=== PATIENT | male | born 1985 | race Caucasian/White ===

== ENCOUNTER 2025-01-25 08:25 | Observation (INO) ==
--- NOTE | 2025-01-25 08:49 | Emergency Department Note ---
Impression & Plan Acute calculous cholecystitis, Abdominal pain ED Provider Note CHIEF COMPLAINT: Constipation HISTORY OF PRESENTING ILLNESS: The patient is a 39-year-old male who arrives to the emergency department for evaluation of severe constipation. Patient has been dealing with severe constipation since September. He has seen GI, who placed the patient on Trulance, which initially was successful, however his insurance would not cover it. The patient was then placed on Linzess, with no success. He has been using MiraLAX, fiber, and changes in diet with no relief of symptoms. He states he has severe diffuse abdominal pain, with most severe area of pain at the epigastrium. He reports he is unable to eat, as he feels very full. He reports some nausea, worsening with lying flat, no vomiting. He states yesterday he had a very watery stool. He denies fever, he is well-appearing otherwise, with stable vital signs. REVIEW OF SYSTEMS: See HPI for pertinent positives and pertinent negatives. ALLERGIES: See below MEDICATIONS: See below PAST MEDICAL HISTORY: See below PHYSICAL EXAM: VITALS: Vitals are noted on the nurse's note and reviewed by myself. Vital signs stable. GENERAL: 39-year-old male, in no acute distress, nondiaphoretic, well-developed well-nourished. SKIN: The skin was without rashes, erythema, edema, or bruising. HEART: Regular rate and rhythm without murmurs gallops or rubs. LUNGS: Clear to auscultation bilaterally without wheezes, rales or rhonchi. No retractions or accessory muscle use. ABDOMEN: Hypoactive bowel sounds x 4. Soft, diffuse tenderness to palpation, without masses or organomegaly. Rice sign negative. No guarding or rebound tenderness. Left CVA TTP. MUSCULOSKELETAL: No muscle atrophy, erythema, or edema noted. Normal gait. Strength 5/5 throughout. NEURO: Patient was alert and oriented to person place and time. No focal neurological deficits. DIFFERENTIAL DIAGNOSIS: Appendicitis, infections, diverticulitis, UTI, obstruction, mesenteric ischemia, aortic pathology, inflammatory bowel disease, renal colic, PUD, pancreatitis, biliary pathology, hernia, volvulus, constipation, as well as other pathologies. ED COURSE AND MEDICAL DECISION MAKING: HISTORY FROM INDEPENDENT HISTORIAN: Mother at bedside serving as secondary historian. MEDICATIONS GIVEN: 1 L NSS bolus, 4 mg IV Zofran, 4.5 g IV Zosyn INTERPRETATION OF LABS: I interpreted the labs with full lab results as below in the lab section of this note. Pertinent lab results discussed in the MDM section below. INTERPRETATION OF IMAGING: Imaging studies were interpreted by myself and read by radiology as per the imaging section of this note. EXTERNAL RECORDS REVIEWED: GI visit from January 04 of this year reviewed CHRONIC MEDICAL/SOCIAL CONDITIONS AFFECTING CARE: Chronic constipation MDM SUMMARY: The patient is a pleasant, 39-year-old male who arrives to the emergency department for evaluation of the above-stated complaint. Saline lock was established, lab work was obtained. Lab work shows slight leukocytosis 12.82, no anemia. CMP shows hypercalcemia 10.6, elevated blood glucose 111, no elevation of AST, ALT, or alkaline phosphatase. Total bili 0.7. Urinalysis cloudy, 1+ ketones, trace blood, and 1+ bacteria. No leukocyte esterase, negative nitrites. CT imaging of the abdomen and pelvis with IV contrast was obtained to rule out intra-abdominal process, due to patient's complaint of diffuse abdominal pain, as well as CVA tenderness, which shows cholelithiasis with a stone present within the gallbladder neck versus proximal cystic duct. Also findings suspicious for early developing acute cholecystitis. No bowel obstruction or bowel wall thickening, no biliary ductal dilatation, normal appendix. Patient was provided 1 L NSS bolus, 4 mg of IV Zofran, and 4.5 g of IV Zosyn. Initial attempt to admit the patient to medicine, however general surgery agreed to admit the patient to their services. The patient will be placed on the surgical list for tomorrow morning. Please refer to Dr. Mishra's documentation for further patient workup and care.. DIAGNOSIS: Abdominal pain, acute cholecystitis The chart was completed utilizing [employer] Speech voice recognition software. Grammatical errors, random word insertions, pronoun errors, and incomplete sentences are an occasional consequence of this system due to software limitations, ambient noise, and hardware issues. Any formal questions or concerns about the content, text, or information contained within the body of this dictation should be directly addressed to the provider for clarification. TREATMENT PLAN/DISCHARGE INSTRUCTIONS: Admit to general surgery for surgical intervention Past Med/Surg History Problem List (Updated 01/25/25 @ 12:44 by LINK Freeman) Abdominal pain (Acute) Acute calculous cholecystitis (Acute) Chronic constipation Change in bowel habits Tachycardia (Chronic) Adult ADHD (Chronic) Controlled substance agreement signed (Chronic) Elevated BP without diagnosis of hypertension (Chronic) Heartburn (Chronic) Smokes less than 1/2 pack per day (Chronic) Migraines (Chronic) Medical History Adopted Migraines Acid reflux ADHD Surgical History History of dental surgery IMPLANTS [place] teeth removed History of tonsillectomy and adenoidectomy History of inguinal hernia repair H/O wrist surgery distal radius Family History Unknown Adopted Social History Smoking Status: Current every day smoker Tobacco Type: E-cigarettes / Vaping Age Started Using Tobacco: 18; Age Quit Using Tobacco: 34; packs per day: 0.05; Cigarettes Per Day: 2 cig per day; Second Hand Exposure: No; Do You Dip or Chew Tobacco: No; Hx Alcohol Use: No Hx Substance Use: No Preferred Language: Faroese Communication Ability: Effective Visual Impairment: No Limitations Hearing Ability: Normal Database Software Technician Required: No marital status: Single Current Living Situation: Family current occupational status: employed 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 Feels Safe at Home: Yes Childhood Exposure to Second-Hand Smoke: No Diet: regular Diet Comment: no specific diet caffeine: Yes during the past year weight has: remained stable Dental Care, Regularly: No Physical Activity Frequency: Does not Exercise Seatbelt Use: always Sunscreen Use: No Sexual Orientation Comment: refuse to answer Allergies Allergies Allergy/AdvReac Type Severity Reaction Status Date / Time No Known Drug Allergies Allergy Verified 01/25/25 10:42 Home Meds Home Medications Medication Instructions Recorded Confirmed famotidine 40 mg tablet 40 mg PO QPM 01/04/25 01/25/25 polyethylene glycol 3350 17 17 g PO DAILY PRN Constipation 01/04/25 01/25/25 gram/dose oral powder (Miralax) bisacodyl 5 mg tablet,delayed 5 mg PO DAILY PRN Constipation 01/25/25 01/25/25 release (Dulcolax (bisacodyl)) dextroamphetamine-amphetamine ER 30 mg PO QAM 01/25/25 01/25/25 30 mg 24hr capsule,extend release (Adderall XR) docusate sodium 100 mg capsule 100 mg PO DAILY PRN Constipation 01/25/25 01/25/25 (Colace) linaclotide 145 mcg capsule 145 mcg PO QAM 01/25/25 01/25/25 (Linzess) Results & Data (ED) Vital Signs Vital Signs - 24 hr 01/25/25 08:35 01/25/25 11:03 Temperature 36.7 C Temperature Source Oral Pulse Rate 76 Pulse Rate [Finger] 51 L Respiratory Rate 20 16 Respiratory Effort / Characteristics Non-Labored Spontaneous Non-Labored Spontaneous Respiratory Depth Normal Normal Blood Pressure 153/90 H Blood Pressure [Right Arm] 152/100 H Blood Pressure Mean 111 Blood Pressure Mean [Right Arm] 117 Pulse Oximetry 99 100 Oxygen Delivery Method Room Air Room Air Sepsis Recent Fever Within 48 Hours No Sepsis New/Unexplained Change in Mental Status N/A Sepsis Action Taken by Nursing No Action Required Home Medications Current Medication List: was personally reviewed by me Laboratory Data Attestation: I reviewed the patient's lab results. 01/25/25 09:09 01/25/25 09:09 Lab Results 01/25/25 01/25/25 Range/Units 09:09 10:43 WBC 12.82 H (4.8-10.8) K/ul RBC 5.66 (4.70-6.10) M/uL Hgb 16.6 (14.0-18.0) g/dl Hct 48.6 (42.0-52.0) % MCV 85.9 (80.0-100.0) fL MCH 29.3 (25.0-34.0) pg MCHC 34.2 (32.0-36.0) g/dL RDW Std Deviation 38.4 (36.4-46.3) fL RDW Coeff of Wu 12.3 (11.5-14.5) % Plt Count 255 (130-400) K/uL MPV 9.8 (9.4-12.4) fL Immature Gran % (Auto) 0.4 % Neut % (Auto) 83.2 % Lymph % (Auto) 10.1 % [place] % (Auto) 5.8 % Eos % (Auto) 0.1 % Baso % (Auto) 0.4 % Neut # (Auto) 10.67 H (1.40-6.50) K/uL Lymph # (Auto) 1.30 (1.20-3.40) K/uL [place] # (Auto) 0.74 H (0.11-0.59) K/uL Eos # (Auto) 0.01 (0.00-0.50) K/uL Baso # (Auto) 0.05 (0.00-0.20) K/uL Immature Gran # (Auto) 0.05 (0.01-0.20) K/uL Sodium 138 (136-145) mmol/L Potassium 3.6 (3.5-5.1) mmol/L Chloride 98 (98-107) mmol/L Carbon Dioxide 30 (21-32) mmol/L Anion Gap 10 (3-11) BUN 10 (6-23) mg/dl Creatinine 1.32 (0.6-1.4) mg/dl Est Cr Clr Drug Dosing 87.4 ml/min eGFR 70.36 BUN/Creatinine Ratio 7.6 L (10-20) Glucose 111 H (70-99(Fasting)) mg/dl Calcium 10.6 H (8.6-10.3) mg/dl Total Bilirubin 0.7 (0.2-1.0) mg/dl AST 24 (13-39) U/L ALT 28 (7-52) U/L Alkaline Phosphatase 97 (34-104) U/L Total Protein 7.7 (6.0-8.3) gm/dl Albumin 4.8 (3.4-5.0) gm/dl Globulin 2.9 (2.5-4.0) gm/dl Albumin/Globulin Ratio 1.7 (0.9-2) Lipase 28 (11-82) U/L Urine Color Yellow Urine Appearance Cloudy A (Clear) Urine pH 7.0 (4.5-7.5) Ur Specific [place] 1.020 (1.000-1.030) Urine Protein Negative (Negative) Urine Glucose (UA) Negative (Negative) Urine Ketones 1+ H (Negative) Urine Blood Trace-intact H (Negative) Urine Nitrite Negative (Negative) Urine Bilirubin Negative (Negative) Urine Urobilinogen Negative (Negative) Ur Leukocyte Esterase Negative (Negative) Urine RBC 0-2 (0-2) /hpf Urine WBC 6-10 H (0-5) /hpf Ur Epithelial Cells 0-2 (0-2) /hpf Amorphous Sediment Present A (None Prsent) Urine Bacteria 1+ H (None Seen) Urine Mucus Present A (None Prsent) Urine Comment Administered Medications Discontinued Medications Sodium Chloride (Nss) 1,000 mls @ 999 mls/hr IV .Q1H1M STA Stop: 01/25/25 09:43 Last Infusion: 01/25/25 10:09 Dose: Infused Documented By: Admin: 01/25/25 09:05 Dose: 999 mls/hr Documented By: YULISA Piperacillin Sod/Tazobactam Sod (Zosyn) 4.5 gm in 100 mls @ 200 mls/hr IV NOW ONE; Protocol Stop: 01/25/25 11:35 Last Infusion: 01/25/25 11:54 Dose: Infused Documented By: Admin: 01/25/25 11:16 Dose: 200 mls/hr Documented By: SAMUEL Ioversol (Optiray 320 100ml) 94 ml IV ONCE ONE Stop: 01/25/25 10:30 Last Admin: 01/25/25 10:30 Dose: 94 ml Documented By: VENICE Ketorolac Tromethamine (Ketorolac 30 Mg/Ml Vial) 30 mg IV NOW ONE Stop: 01/25/25 12:02 Last Admin: 01/25/25 12:33 Dose: 30 mg Documented By: SAMUEL Ondansetron HCl (Ondansetron Inj 2 Mg/Ml 2 Ml Vial) 4 mg IV NOW STA Stop: 01/25/25 08:44 Last Admin: 01/25/25 09:06 Dose: 4 mg Documented By: YULISA Ondansetron HCl (Ondansetron Inj 2 Mg/Ml 2 Ml Vial) 4 mg IV NOW STA Stop: 01/25/25 11:31 Last Admin: 01/25/25 11:32 Dose: 4 mg Documented By: SAMUEL Imaging Data Attestation: I personally reviewed and interpreted this imaging study as follows: Radiologist's Impression: Abdomen/Pelvis CT 01/25/25 08:[address] WITH IV CONTRAST CT DOSE: 1255.08 mGy.cm HISTORY: Acute generalized abdominal pain diffuse abdominal pain TECHNIQUE: Multiaxial CT images of the abdomen and pelvis were performed following the IV administration of 94 cc of Optiray, A dose lowering technique was utilized adhering to the principles of ALARA. COMPARISON STUDY: None. FINDINGS: Clear lung bases. No pneumatosis or pneumoperitoneum identified. Unremarkable spleen, pancreas and adrenal glands. The gallbladder is distended with borderline gallbladder wall thickening and contains several intermediate to large intraluminal stones. There is a 1.4 cm stone noted within the gallbladder neck versus proximal cystic duct on image 75 series 3. There is no significant biliary ductal dilation or choledocholithiasis. Periportal edema with unremarkable appearance of the liver. 4 mm nonobstructing calculus of the interpolar right kidney. No hydronephrosis. Aorta and IVC are within normal limits. No lymphadenopathy. Tiny hiatal hernia with mild distal esophageal wall thickening. No bowel obstruction, bowel wall thickening or ascites. Normal appendix. Sclerosis of the intertrochanteric right femur is likely benign. No acute fracture. IMPRESSION: 1. Cholelithiasis with a stone present within the gallbladder neck versus proximal cystic duct. Additionally, there are findings suspicious for early developing acute cholecystitis. 2. No bowel obstruction or bowel wall thickening. 3. No biliary ductal dilation. 4. Normal appendix. ACT 112: Negative or not required by law. The above report was generated using voice recognition software. It may contain grammatical, syntax or spelling errors. Electronically signed by: Robby Bullock M.D. 01/25/2025 10:55 AM Discharge Plan Visit Data Chief Complaint: Constipation Stated Complaint: SEVERE PAIN FROM CONSTIPATION ED Provider: Jose Elias Hensley ED Midlevel Provider: Shante Holt Discharge Problem: Acute calculous cholecystitis, Abdominal pain Patient Disposition: Admitted As Inpatient Condition: Fair Forms Stand Alone Forms: Jounce Prescriptions Prescriptions: No Action polyethylene glycol 3350 [Miralax] 17 gram/dose powder 17 g PO DAILY PRN (Reason: Constipation) famotidine 40 mg tablet 40 mg PO QPM docusate sodium [Colace] 100 mg Capsule 100 mg PO DAILY PRN (Reason: Constipation) bisacodyl [Dulcolax (bisacodyl)] 5 mg Tablet,Delayed Release (Dr/Ec) 5 mg PO DAILY PRN (Reason: Constipation) dextroamphetamine-amphetamine [Adderall XR] 30 mg capsule,extended release 24hr 30 mg PO QAM Linzess 145 mcg capsule 145 mcg PO QAM Referrals Referrals: Shivani Yates MD [Primary Care Provider] -
[2025-01-25] MEDS: SODIUM CHLORIDE 0.9% 1,000 ML IV STA (09:05)
[2025-01-25] MEDS: ONDANSETRON INJ 2 MG/ML 2 ML VIAL IV STA ×2 (09:06→11:32)
[2025-01-25 09:31] LABS: Hematocrit (blood only) 48.6 % (42.0-52.0); Hemoglobin 16.6 g/dl (14.0-18.0); Immature Granulocytes # (auto) 0.05 K/uL (0.01-0.20); Immature Granulocytes % (auto) 0.4 %; Mean Corpuscular Hemoglobin 29.3 pg (25.0-34.0); Mean Corpuscular Volume 85.9 fL (80.0-100.0); Platelet Count 255 K/uL (130-400); RDW Standard Deviation 38.4 fL (36.4-46.3); Red Blood Count 5.66 M/uL (4.70-6.10); White Blood Count 12.82 K/ul (4.8-10.8)
[2025-01-25 09:56] LABS: Alanine Aminotransferase 28.0 U/L (7-52); Albumin Globulin Ratio 1.7 (0.9-2); Alkaline Phosphatase 97.0 U/L (34-104); Anion Gap 10.0 (3-11); Bilirubin,Total 0.7 mg/dl (0.2-1.0); Blood Urea Nitrogen 10.0 mg/dl (6-23); Calcium 10.6 mg/dl (8.6-10.3); Carbon Dioxide 30.0 mmol/L (21-32); Chloride 98.0 mmol/L (98-107); Creatinine Clr Calc Pharmacy 87.4 ml/min; Globulin 2.9 gm/dl (2.5-4.0); Glucose 111.0 mg/dl (70-99(Fasting)); Lipase 28.0 U/L (11-82); Potassium 3.6 mmol/L (3.5-5.1); Sodium 138.0 mmol/L (136-145); Total Protein 7.7 gm/dl (6.0-8.3)
[2025-01-25] MEDS: OPTIRAY 320 100ml IV ONE (10:30)
--- NOTE | 2025-01-25 10:56 | CT Scan Report ---
ABDOMEN AND PELVIS CT WITH IV CONTRAST CT DOSE: 1255.08 mGy.cm HISTORY: Acute generalized abdominal pain diffuse abdominal pain TECHNIQUE: Multiaxial CT images of the abdomen and pelvis were performed following the IV administrat ion of 94 cc of Optiray, A dose lowering technique was utilized adhering to the principles of ALARA. COMPARISON STUDY: None. FINDINGS: Clear lung bases. No pneumatosis or pneumoperitoneum identified. Unremarkable spleen, pancr eas and adrenal glands. The gallbladder is distended with borderline gallbladder wall thickening and contains several intermediate to large intraluminal stones. There is a 1.4 cm stone noted within the gallbladder neck versus proximal cystic duct on image 75 series 3. There is no significant biliary du ctal dilation or choledocholithiasis. Periportal edema with unremarkable appearance of the liver. 4 mm nonobstructing calculus of the interpolar right kidney. No hydronephrosis. Aorta and IVC are wit hin normal limits. No lymphadenopathy. Tiny hiatal hernia with mild distal esophageal wall thickening . No bowel obstruction, bowel wall thickening or ascites. Normal appendix. Sclerosis of the intertroc hanteric right femur is likely benign. No acute fracture. IMPRESSION: 1. Cholelithiasis with a stone present within the gallbladder neck versus proximal cystic duct. Addit ionally, there are findings suspicious for early developing acute cholecystitis. 2. No bowel obstruction or bowel wall thickening. 3. No biliary ductal dilation. 4. Normal appendix. ACT 112: Negative or not required by law. The above report was generated using voice recognition software. It may contain grammatical, syntax o r spelling errors. Electronically signed by: Robby Bullock M.D. 01/25/2025 10:55 AM
[2025-01-25 10:58] LABS: Appearance Urine Cloudy (Clear); Glucose Urine UA Negative (Negative)
[2025-01-25 11:12] LABS: Epithelial Cell Urine 0-2 /hpf (0-2)
[2025-01-25] MEDS: PIPERACILLIN/TAZOBACTAM 4.5 GM/100 ML BAG IV ONE (11:16)
--- NOTE | 2025-01-25 12:14 | History & Physical Report ---
Date of Service January 25, 2025 Assessment & Plan (1) Acute calculous cholecystitis: (2) Chronic constipation: Plan 39 yo male with sudden onset of RUQ/epigastric abdominal pain with associated nausea and bilious vomiting. History of similar abdominal pain episodes 3-4 times per last 4-5 months. Thought secondary to constipation but had burger at dinner last night and pain woke him up at 2:30 am. Exam consistent with acute cholecystitis with positive Rice's sign. CT scan with stone in neck of gallbladder. Leukocytosis of 12.8k, T. bili/LFTs wnl and no evidence of biliary obstruction on imaging. Discussed imaging and lab findings with patient and family member at bedside. Plan to admit to hospital for observation and discussed laparoscopic cholecystectomy in am. Discussed procedure, risks, expected recovery and restrictions. All questions answered. Patient electing to proceed with laparoscopic cholecystectomy tomorrow am with Dr. Mishra. Will sign consent in preop. NPO, IV fluids, IV zosyn, pain management (will give dose of IV Toradol now), antiemetics as needed, repeat am labs cbc and cmp, npo after midnight. Discussed with Dr. Mishra who agrees with above. History of Present Illness Chief Complaint: Severe abdominal pain Primary Care Provider: Shivani Yates MD Nacho is a 39 yo male with history of ADHD, GERD, migraines, with recent chronic constipation starting in September of this year who presented to ED with complaint of severe upper abdominal pain with radiaiton throughout abdomen but mostly in upper right and mid abdomen with radiation to his right back. Associated nausea and vomiting since being in the ED. Vomiting bilious. No blood. Denies fever or chills. Bowels have been loose since Friday, previously hard pellet like prior to bowel regimen and trulance/linzess prescribed by GI. No unintentional weight loss or blood in stools. Some abdominal distension. Colonoscopy is scheduled for April. History of bilateral inguinal hernia repair at 2 months old, no other abdominal surgies. No blood thinning agents. He had a greasy burger at dinner last night and pain woke him up at 2:30 am. Similar attach Friday at 2:30 am and 3 prior episodes. Allergies Allergy/AdvReac Type Severity Reaction Status Date / Time No Known Drug Allergies Allergy Verified 01/25/25 10:42 Home Medications Medication Instructions Recorded Confirmed Type famotidine 40 mg tablet 40 mg PO QPM 01/04/25 01/25/25 History polyethylene glycol 3350 17 17 g PO DAILY PRN Constipation 01/04/25 01/25/25 History gram/dose oral powder (Miralax) bisacodyl 5 mg tablet,delayed 5 mg PO DAILY PRN Constipation 01/25/25 01/25/25 History release (Dulcolax (bisacodyl)) dextroamphetamine-amphetamine ER 30 mg PO QAM 01/25/25 01/25/25 History 30 mg 24hr capsule,extend release (Adderall XR) docusate sodium 100 mg capsule 100 mg PO DAILY PRN Constipation 01/25/25 01/25/25 History (Colace) linaclotide 145 mcg capsule 145 mcg PO QAM 01/25/25 01/25/25 History (Linzess) Past Med/Surg History Problem List (Updated 01/25/25 @ 12:10 by Ingrid Sheets PA-C) Acute calculous cholecystitis Chronic constipation Change in bowel habits Tachycardia (Chronic) Adult ADHD (Chronic) Controlled substance agreement signed (Chronic) Elevated BP without diagnosis of hypertension (Chronic) Heartburn (Chronic) Smokes less than 1/2 pack per day (Chronic) Migraines (Chronic) Medical History Acid reflux ADHD Adopted Migraines Surgical History H/O wrist surgery History of dental surgery History of inguinal hernia repair History of tonsillectomy and adenoidectomy [place] teeth removed Family History Unknown Adopted Social History Smoking Status: Current every day smoker Tobacco Type: E-cigarettes / Vaping Age Started Using Tobacco: 18; Age Quit Using Tobacco: 34; packs per day: 0.05; Cigarettes Per Day: 2 cig per day; Second Hand Exposure: No; Do You Dip or Chew Tobacco: No; Hx Alcohol Use: No Hx Substance Use: No Preferred Language: Japanese Communication Ability: Effective Visual Impairment: No Limitations Hearing Ability: Normal Websphere Portal Developer Required: No marital status: Single Current Living Situation: Family current occupational status: employed 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 Feels Safe at Home: Yes Childhood Exposure to Second-Hand Smoke: No Diet: regular Diet Comment: no specific diet caffeine: Yes during the past year weight has: remained stable Dental Care, Regularly: No Physical Activity Frequency: Does not Exercise Seatbelt Use: always Sunscreen Use: No Sexual Orientation Comment: refuse to answer Review of Systems Review of Systems: All systems reviewed & are unremarkable except as noted in HPI & below Physical Exam Constitutional: WD/WN, vitals as above cooperative; no acute distress, not ill appearing, + uncomfortable, not in distress, not combative, not diaphoretic and not lethargic Looks slightly uncomfortable secondary to pain, trying to get in comfortable position but not diaphoretic and in no acute distress Respiratory: normal respiratory effort, lungs clear to auscultation Cardiovascular: RRR, no murmur, no edema Gastrointestinal (Abdomen): Inspection/Auscultation: abdomen normal to inspection; abdomen not distended Percussion/Palpation: + abdomen tender (RUQ + Rice's sign) and abdomen soft; no guarding, abdomen not rigid and abdomen not firm Skin: no rashes, warm and dry no jaundice Psychiatric: Orientation: alert and oriented x 3 Results & Data Results & Data Vital Signs (Past 12 Hours) Vital Signs Temp Pulse Pulse Resp BP BP Pulse Ox 01/25/25 11:03 51 L 16 152/100 H 100 01/25/25 08:35 36.7 C 76 20 153/90 H 99 O2 Del Method 01/25/25 11:03 Room Air 01/25/25 08:35 Room Air Laboratory Results 01/25/25 01/25/25 Range/Units 10:43 09:09 WBC 12.82 H (4.8-10.8) K/ul RBC 5.66 (4.70-6.10) M/uL Hgb 16.6 (14.0-18.0) g/dl Hct 48.6 (42.0-52.0) % MCV 85.9 (80.0-100.0) fL MCH 29.3 (25.0-34.0) pg MCHC 34.2 (32.0-36.0) g/dL RDW Std Deviation 38.4 (36.4-46.3) fL RDW Coeff of Wu 12.3 (11.5-14.5) % Plt Count 255 (130-400) K/uL MPV 9.8 (9.4-12.4) fL Immature Gran % (Auto) 0.4 % Neut % (Auto) 83.2 % Lymph % (Auto) 10.1 % [place] % (Auto) 5.8 % Eos % (Auto) 0.1 % Baso % (Auto) 0.4 % Neut # (Auto) 10.67 H (1.40-6.50) K/uL Lymph # (Auto) 1.30 (1.20-3.40) K/uL [place] # (Auto) 0.74 H (0.11-0.59) K/uL Eos # (Auto) 0.01 (0.00-0.50) K/uL Baso # (Auto) 0.05 (0.00-0.20) K/uL Immature Gran # (Auto) 0.05 (0.01-0.20) K/uL Sodium 138 (136-145) mmol/L Potassium 3.6 (3.5-5.1) mmol/L Chloride 98 (98-107) mmol/L Carbon Dioxide 30 (21-32) mmol/L Anion Gap 10 (3-11) BUN 10 (6-23) mg/dl Creatinine 1.32 (0.6-1.4) mg/dl Est Cr Clr Drug Dosing 87.4 ml/min eGFR 70.36 BUN/Creatinine Ratio 7.6 L (10-20) Glucose 111 H (70-99(Fasting)) mg/dl Calcium 10.6 H (8.6-10.3) mg/dl Total Bilirubin 0.7 (0.2-1.0) mg/dl AST 24 (13-39) U/L ALT 28 (7-52) U/L Alkaline Phosphatase 97 (34-104) U/L Total Protein 7.7 (6.0-8.3) gm/dl Albumin 4.8 (3.4-5.0) gm/dl Globulin 2.9 (2.5-4.0) gm/dl Albumin/Globulin Ratio 1.7 (0.9-2) Lipase 28 (11-82) U/L Urine Color Yellow Urine Appearance Cloudy A (Clear) Urine pH 7.0 (4.5-7.5) Ur Specific [place] 1.020 (1.000-1.030) Urine Protein Negative (Negative) Urine Glucose (UA) Negative (Negative) Urine Ketones 1+ H (Negative) Urine Blood Trace-intact H (Negative) Urine Nitrite Negative (Negative) Urine Bilirubin Negative (Negative) Urine Urobilinogen Negative (Negative) Ur Leukocyte Esterase Negative (Negative) Urine RBC 0-2 (0-2) /hpf Urine WBC 6-10 H (0-5) /hpf Ur Epithelial Cells 0-2 (0-2) /hpf Amorphous Sediment Present A (None Prsent) Urine Bacteria 1+ H (None Seen) Urine Mucus Present A (None Prsent) Urine Comment Diagnostic Findings ABDOMEN AND PELVIS CT WITH IV CONTRAST CT DOSE: 1255.08 mGy.cm HISTORY: Acute generalized abdominal pain diffuse abdominal pain TECHNIQUE: Multiaxial CT images of the abdomen and pelvis were performed following the IV administration of 94 cc of Optiray, A dose lowering technique was utilized adhering to the principles of ALARA. COMPARISON STUDY: None. FINDINGS: Clear lung bases. No pneumatosis or pneumoperitoneum identified. Unremarkable spleen, pancreas and adrenal glands. The gallbladder is distended with borderline gallbladder wall thickening and contains several intermediate to large intraluminal stones. There is a 1.4 cm stone noted within the gallbladder neck versus proximal cystic duct on image 75 series 3. There is no significant biliary ductal dilation or choledocholithiasis. Periportal edema with unremarkable appearance of the liver. 4 mm nonobstructing calculus of the interpolar right kidney. No hydronephrosis. Aorta and IVC are within normal limits. No lymphadenopathy. Tiny hiatal hernia with mild distal esophageal wall thickening. No bowel obstruction, bowel wall thickening or ascites. Normal appendix. Sclerosis of the intertrochanteric right femur is likely benign. No acute fracture. IMPRESSION: 1. Cholelithiasis with a stone present within the gallbladder neck versus proximal cystic duct. Additionally, there are findings suspicious for early developing acute cholecystitis. 2. No bowel obstruction or bowel wall thickening. 3. No biliary ductal dilation. 4. Normal appendix. ACT 112: Negative or not required by law. The above report was generated using voice recognition software. It may contain grammatical, syntax or spelling errors. I personally reviewed CT scan images and concur with above findings Code Status & VTE Plan VTE Prophylaxis Plan VTE Prophylaxis will be ordered: Yes
[2025-01-25] MEDS: KETOROLAC 30 MG/ML VIAL IV ONE (12:33)
[2025-01-25] MEDS ORDERED: MoRPHine SULFATE 2 MG/ML CARP IV PRN ×2 (12:54→15:23)
--- NOTE | 2025-01-25 13:05 | History & Physical Report ---
Date of Service January 25, 2025 Assessment & Plan (1) Abdominal pain: Plan: Nacho Qureshi is a 39 yo male with PMH b/l inguinal hernia s/p surgery age 2, ADHD, constipation. he is adopted, but mentioned Fhx of copd and CHF he been having constipation but unable to get colonoscopy till apr 2025 on friday, he has episode of LLQ pain, RUQ pain. on Friday evening (01/24), he's again has LLQ pain, RUQ pain, epigatstric pain 1. acute cholecystitis 2. LLQ pain, epigastric pain 3. constipation 4. ADHD 5. hx of b/l inguinal hernia s/p repair 1. acute cholecystitis surgery team following IV fluid, monitor for lipase, LFT, total and direct BR 2. LLQ pain, constipation he will benefit from early colonoscopy discussed potential for colonic polyps, cancer. 3. constipation he's on miralax, linezess, colace 4. ADHD he's on adderall XR 30mg PO daily 5. GERd, famoitidine 40mg BID, (2) Acute calculous cholecystitis: (3) LLQ pain: History of Present Illness Chief Complaint: LLQ pain, constipation (never has colonoscopy) RUQ pain since last night (another episode of Friday) cholelithiasis Primary Care Provider: Shivani Yates MD Mr Nacho Badillo is a 39 yo male with PMh of b/i inguinal hernia s/p repair (age 2) ADHD, constipation. his was adopted and his biological mother from lung cnacer his adopted mother is a retired nurse he's been having constipation for several months, see GI, but colonoscopy wasn't until Apr on Friday he noticed an episode of LLQ pain, RUQ pain and epigastric pain on Friday evening, he's again noticing LLQ pain, RUQ, pain and epigastric pain he's denied any blood in the stool, melena, thin caliper stool, weight loss, nausea and vomiting his CT abdomen concern for cholecystitis. however, he was in significant pain and BP is 152/100 in addition, his mother, mentioned b/l shoulder pain no chest, no shortness of breath no headache Allergies Allergy/AdvReac Type Severity Reaction Status Date / Time No Known Drug Allergies Allergy Verified 01/25/25 10:42 Home Medications Medication Instructions Recorded Confirmed Type famotidine 40 mg tablet 40 mg PO QPM 01/04/25 01/25/25 History polyethylene glycol 3350 17 17 g PO DAILY PRN Constipation 01/04/25 01/25/25 History gram/dose oral powder (Miralax) bisacodyl 5 mg tablet,delayed 5 mg PO DAILY PRN Constipation 01/25/25 01/25/25 History release (Dulcolax (bisacodyl)) dextroamphetamine-amphetamine ER 30 mg PO QAM 01/25/25 01/25/25 History 30 mg 24hr capsule,extend release (Adderall XR) docusate sodium 100 mg capsule 100 mg PO DAILY PRN Constipation 01/25/25 01/25/25 History (Colace) linaclotide 145 mcg capsule 145 mcg PO QAM 01/25/25 01/25/25 History (Linzess) Past Med/Surg History Problem List (Updated 01/25/25 @ 13:01 by Romie Haines DO) LLQ pain Abdominal pain (Acute) Acute calculous cholecystitis (Acute) Chronic constipation Change in bowel habits Tachycardia (Chronic) Adult ADHD (Chronic) Controlled substance agreement signed (Chronic) Elevated BP without diagnosis of hypertension (Chronic) Heartburn (Chronic) Smokes less than 1/2 pack per day (Chronic) Migraines (Chronic) Medical History Adopted Migraines Acid reflux ADHD Surgical History History of dental surgery IMPLANTS [place] teeth removed History of tonsillectomy and adenoidectomy History of inguinal hernia repair H/O wrist surgery distal radius Family History Unknown Adopted Social History Smoking Status: Current every day smoker Tobacco Type: E-cigarettes / Vaping Age Started Using Tobacco: 18; Age Quit Using Tobacco: 34; packs per day: 0.05; Cigarettes Per Day: 2 cig per day; Second Hand Exposure: No; Do You Dip or Chew Tobacco: No; Hx Alcohol Use: No Hx Substance Use: No Preferred Language: Monegasque Communication Ability: Effective Visual Impairment: No Limitations Hearing Ability: Normal Clothing Sales Assistant Required: No marital status: Single Current Living Situation: Family current occupational status: employed 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 Feels Safe at Home: Yes Childhood Exposure to Second-Hand Smoke: No Diet: regular Diet Comment: no specific diet caffeine: Yes during the past year weight has: remained stable Dental Care, Regularly: No Physical Activity Frequency: Does not Exercise Seatbelt Use: always Sunscreen Use: No Sexual Orientation Comment: refuse to answer Review of Systems Review of Systems: Constitutional: No Weight Change, No Fever, No Chills, No Night Sweats, No Fatigue, No Malaise Cardiovascular: No Chest Pain, No SOB, No PND, No Dyspnea on Exertion, No Orthopnea, No Claudication, No Edema, No Palpitations Respiratory: No Cough, No Sputum, No Wheezing, No Smoke Exposure, No Dyspnea Gastrointestinal: + for constipation; + for LLQ pain, RUQ pain, epigastric pain; no melena; no thin caliper stool; no hematochezia; no casey color stool : no dark color urine Musculoskeletal: + for scapular pain Neuro: No Weakness, No Numbness, No Paresthesias, No Loss of Consciousness, No Syncope, No Dizziness, No Headache, No Coordination Changes, No Recent Falls Psych: No Anxiety/Panic, No Depression, No Insomnia, No Personality Changes, No Delusions, No Rumination, No SI/HI/AH/VH, No Social Issues, No Memory Changes, No Violence/Abuse Hx., No Eating Concerns Endocrine: No Polyuria, No Polydipsia, No Temperature Intolerance Physical Exam Physical Exam: VITALS: Reviewed. WEIGHT/BMI reviewed. GEN: Healthy appearing, well-developed, NAD. -Head: NC/AT; -Eyes: PERRL, EOMI. No discharge or redn ess; -Mouth and throat: MMM. Normal gums, muc eric, palate,. NECK: Supple, with no masses. CV: RRR, no m/r/g. LUNGS: CTAB, no w/r/c. ABD: Soft, NT/ND, NBS, no masses or organomegaly. no ascites; no mass noted. : N/A MSK: No deformities, Normal gait. EXT: No clubbing, cyanosis, or edema. NEURO: AAox3 Results & Data Results & Data Vital Signs (Past 12 Hours) Vital Signs Temp Pulse Pulse Resp BP BP Pulse Ox 01/25/25 12:54 54 L 01/25/25 11:03 51 L 16 152/100 H 100 01/25/25 08:35 36.7 C 76 20 153/90 H 99 O2 Del Method 01/25/25 12:54 01/25/25 11:03 Room Air 01/25/25 08:35 Room Air Laboratory Results Laboratory Results - last 72 hr 01/25/25 01/25/25 09:09 10:43 WBC 12.82 H RBC 5.66 Hgb 16.6 Hct 48.6 MCV 85.9 MCH 29.3 MCHC 34.2 RDW Std Deviation 38.4 RDW Coeff of Wu 12.3 Plt Count 255 MPV 9.8 Immature Gran % (Auto) 0.4 Neut % (Auto) 83.2 Lymph % (Auto) 10.1 [place] % (Auto) 5.8 Eos % (Auto) 0.1 Baso % (Auto) 0.4 Neut # (Auto) 10.67 H Lymph # (Auto) 1.30 [place] # (Auto) 0.74 H Eos # (Auto) 0.01 Baso # (Auto) 0.05 Immature Gran # (Auto) 0.05 Sodium 138 Potassium 3.6 Chloride 98 Carbon Dioxide 30 Anion Gap 10 BUN 10 Creatinine 1.32 Est Cr Clr Drug Dosing 87.4 eGFR 70.36 BUN/Creatinine Ratio 7.6 L Glucose 111 H Calcium 10.6 H Total Bilirubin 0.7 AST 24 ALT 28 Alkaline Phosphatase 97 Total Protein 7.7 Albumin 4.8 Globulin 2.9 Albumin/Globulin Ratio 1.7 Lipase 28 Urine Color Yellow Urine Appearance Cloudy A Urine pH 7.0 Ur Specific [place] 1.020 Urine Protein Negative Urine Glucose (UA) Negative Urine Ketones 1+ H Urine Blood Trace-intact H Urine Nitrite Negative Urine Bilirubin Negative Urine Urobilinogen Negative Ur Leukocyte Esterase Negative Urine RBC 0-2 Urine WBC 6-10 H Ur Epithelial Cells 0-2 Amorphous Sediment Present A Urine Bacteria 1+ H Urine Mucus Present A Urine Comment Code Status & VTE Plan VTE Prophylaxis Plan VTE Prophylaxis will be ordered: Yes PG Care Time/CCT Total # of Minutes Spent Total Time Spent with Patient: Total time spent is greater than 50% in coordination of care (as documented) at patient's floor/unit and/or counseling patient: Coding Level of Care Code 52651 INT INP/OBS CARE MIN Diagnoses Abdominal pain R10.9 Acute calculous cholecystitis K80.00 LLQ pain R10.32 Time Spent (min) 35
[2025-01-25 13:44] LABS: Bilirubin,Total 0.8 mg/dl (0.2-1.0)
[2025-01-25] MEDS ORDERED: POLYETHYLENE (MIRALAX) 17 GM PACK PO PRN (15:23)
[2025-01-25] MEDS ORDERED: MoRPHine SULFATE 4 MG/ML 1 ML CARP\\VIAL IV PRN (15:23)
[2025-01-25] MEDS ORDERED: ONDANSETRON INJ 2 MG/ML 2 ML VIAL IV PRN (15:23)
[2025-01-25] MEDS ORDERED: PROMETHAZINE 12.5 MG/50.5 ML BAG IV PRN (15:23)
[2025-01-25] MEDS: PIPERACILLIN/TAZOBACTAM 4.5 GM/100 ML BAG IV SCH (16:00)
[2025-01-25] MEDS: SODIUM CHLORIDE 0.9% 1,000 ML IV SCH (16:02)
[2025-01-25] MEDS: FAMOTIDINE 20 MG TAB ONE (16:28)
[2025-01-25] MEDS: FAMOTIDINE 40 MG TABLET PO SCH (20:51)
[2025-01-25] MEDS: KETOROLAC 30 MG/ML VIAL IV PRN (20:51)
[2025-01-26 07:36] LABS: Hematocrit (blood only) 43.0 % (42.0-52.0); Hemoglobin 14.3 g/dl (14.0-18.0); Immature Granulocytes # (auto) 0.03 K/uL (0.01-0.20); Immature Granulocytes % (auto) 0.3 %; Mean Corpuscular Hemoglobin 29.1 pg (25.0-34.0); Mean Corpuscular Volume 87.4 fL (80.0-100.0); Platelet Count 206 K/uL (130-400); RDW Standard Deviation 40.1 fL (36.4-46.3); Red Blood Count 4.92 M/uL (4.70-6.10); White Blood Count 11.02 K/ul (4.8-10.8)
[2025-01-26 07:56] LABS: Alanine Aminotransferase 21.0 U/L (7-52); Albumin Globulin Ratio 1.6 (0.9-2); Alkaline Phosphatase 72.0 U/L (34-104); Anion Gap 4.0 (3-11); Bilirubin,Total 1.1 mg/dl (0.2-1.0); Blood Urea Nitrogen 8.0 mg/dl (6-23); Calcium 8.9 mg/dl (8.6-10.3); Carbon Dioxide 30.0 mmol/L (21-32); Chloride 106.0 mmol/L (98-107); Creatinine Clr Calc Pharmacy 84.2 ml/min; Globulin 2.4 gm/dl (2.5-4.0); Glucose 114.0 mg/dl (70-99(Fasting)); Potassium 4.5 mmol/L (3.5-5.1); Sodium 140.0 mmol/L (136-145); Total Protein 6.2 gm/dl (6.0-8.3)
[2025-01-26] MEDS ORDERED: MIDAZOLAM HCL 1 MG/ML 2ML VIAL ONE (07:59)
[2025-01-26] MEDS ORDERED: ONDANSETRON INJ 2 MG/ML 2 ML VIAL ONE (08:00)
[2025-01-26] MEDS ORDERED: PROPOFOL IV EMULSION 10 MG/ML 20 ML VIAL IV ONE (08:00)
[2025-01-26] MEDS ORDERED: ROCURONIUM BROMIDE 10 MG/ML 5 ML VIAL IV ONE (08:00)
[2025-01-26] MEDS ORDERED: LIDOCAINE 2% 2 ML VIAL/AMP(20MG/ML) INFIL ONE (08:00)
[2025-01-26] MEDS ORDERED: DEXAMETHASONE SOD INJ 4 MG/ML VIAL ONE (08:00)
--- NOTE | 2025-01-26 08:06 | History & Physical Bridge Note ---
Date of Service January 26, 2025 History & Physical Bridge Note I have examined the patient, reviewed the History & Physical and in the interval since the performance of the History & Physical I have noted the following changes of clinical significance: no changes noted
--- NOTE | 2025-01-26 08:24 | Anesthesiology Consultation ---
Date of Service January 26, 2025 Assessment & Plan Chart Review Chart Review: Acceptable Risk for Surgery and Patient NOT seen in Pre Admission Testing Consults Requested none ASA [id number] Proposed Anesthesia Anesthesia Type: General History Surgery Operation Date: 01/26/25 08:50 Proposed Procedures p Laparoscopic Cholecystectomy - Lexa Mishra MD Height/Weight Height: 6 ft 2 in Weight: 88 kg Allergies Allergy/AdvReac Type Severity Reaction Status Date / Time No Known Drug Allergies Allergy Verified 01/26/25 07:56 Medications Home Medications Medication Instructions Recorded Confirmed Last Taken famotidine 40 mg tablet 40 mg PO QPM 01/04/25 01/25/25 01/25/25 polyethylene glycol 3350 17 17 g PO DAILY PRN Constipation 01/04/25 01/25/25 01/25/25 gram/dose oral powder (Miralax) bisacodyl 5 mg tablet,delayed 5 mg PO DAILY PRN Constipation 01/25/25 01/25/25 01/25/25 release (Dulcolax (bisacodyl)) dextroamphetamine-amphetamine ER 30 mg PO QAM 01/25/25 01/25/25 01/24/25 30 mg 24hr capsule,extend release (Adderall XR) docusate sodium 100 mg capsule 100 mg PO DAILY PRN Constipation 01/25/25 01/25/25 01/25/25 (Colace) linaclotide 145 mcg capsule 145 mcg PO QAM 01/25/25 01/25/25 01/25/25 (Linzess) Active Medications Generic Name Dose Route Start Last Admin Trade Name Freq PRN Reason Stop Dose Admin Famotidine 40 mg 01/25/25 21:00 01/25/25 20:51 Famotidine 40 Mg Tablet PO 02/24/25 20:59 40 mg QPM ARI Administration Piperacillin Sod/Tazobactam Sod 4.5 gm in 100 mls @ 25 mls/hr 01/25/25 16:00 01/26/25 04:13 Zosyn IV 02/04/25 15:59 Infused Q8H ARI Infusion Protocol Sodium Chloride 1,000 mls @ 125 mls/hr 01/25/25 15:23 01/26/25 07:51 Nss IV 01/28/25 15:22 Not Given .Q8H ARI Ketorolac Tromethamine 30 mg 01/25/25 15:23 01/25/25 20:51 Ketorolac 30 Mg/Ml Vial IV 01/30/25 15:22 30 mg Q6H PRN Administration Pain & Pre PT Past Medical History Medical History Adopted Migraines Acid reflux ADHD + tobacco Exercise / Class Metabolic Activity II 4-5 Yardwork/Stairs/Walk up hill Past Family History Family History Unknown Adopted Past Surgical History Surgical History History of dental surgery IMPLANTS [place] teeth removed History of tonsillectomy and adenoidectomy History of inguinal hernia repair H/O wrist surgery distal radius Past Anesthesia History No Hx of Anesthesia Complications and No Family Hx of Anesthesia Complications History of PONV No Hx of PONV and No Hx of Motion Sickness Social History Smoking Status: Current every day smoker tobacco type: cigarettes Smoking cigarettes per day: 2 cig per day Do You Dip or Chew Tobacco: No Hx Alcohol Use: No Hx Substance Use: No substance use type: does not use Physical Exam Vital Signs Last Vital Signs Temp 36.8 C 01/26/25 08:00 Pulse 95 H 01/26/25 08:00 Resp 18 01/26/25 08:00 BP 140/89 01/26/25 08:00 Pulse Ox 98 01/26/25 08:00 O2 Del Method Room Air 01/26/25 08:00 Testing Laboratory Results 01/26/25 07:04 01/26/25 07:04 Urine Color Yellow 01/25/25 10:43 Urine Appearance Cloudy (Clear) A 01/25/25 10:43 Urine pH 7.0 (4.5-7.5) 01/25/25 10:43 Ur Specific [place] 1.020 (1.000-1.030) 01/25/25 10:43 Urine Protein Negative (Negative) 01/25/25 10:43 Urine Glucose (UA) Negative (Negative) 01/25/25 10:43 Urine Ketones 1+ (Negative) H 01/25/25 10:43 Urine Nitrite Negative (Negative) 01/25/25 10:43 Ur Leukocyte Esterase Negative (Negative) 01/25/25 10:43 Urine RBC 0-2 /hpf (0-2) 01/25/25 10:43 Urine WBC 6-10 /hpf (0-5) H 01/25/25 10:43 Ur Epithelial Cells 0-2 /hpf (0-2) 01/25/25 10:43
[2025-01-26] MEDS ORDERED: FLUMAZENIL 0.1 MG/1 ML 10 ML VIAL IV PRN (08:30)
[2025-01-26] MEDS ORDERED: HYDROmorphone INJ 1 MG/ML SYRINGE IV PRN (08:30)
[2025-01-26] MEDS ORDERED: ATROPINE SULFATE 0.1 MG/ML 10ML SYR IV PRN (08:30)
[2025-01-26] MEDS ORDERED: NALOXONE HCL 0.4 MG/1 ML VIAL/CARP IV PRN (08:30)
[2025-01-26] MEDS ORDERED: PROMETHAZINE HCL 6.25 MG in SODIUM CHLORIDE 0.9% 50 ML IV PRN (08:30)
[2025-01-26] MEDS ORDERED: ONDANSETRON INJ 2 MG/ML 2 ML VIAL IV PRN (08:30)
[2025-01-26] MEDS ORDERED: SUGAMMADEX SODIUM 200 MG/2 ML VIAL IV ONE (09:07)
[2025-01-26] MEDS ORDERED: KETOROLAC 30 MG/ML VIAL ONE (09:33)
[2025-01-26] MEDS: BUPIVACAINE/EPINEPHRINE 0.5% MPF 1:200,000 30 ML VIAL ONE (09:40)
--- NOTE | 2025-01-26 09:49 | Operative Report ---
Post Operative Report Pre & Post Diagnosis Operation Date: 01/26/25 08:50 Acute calculous cholecystitis I identified the patient and participated in the time-out.: Yes Procedure Operation Date: 01/26/25 08:50 Laparoscopic cholecystectomy Surgeon Lexa Mishra MD Chief Credit Officer Ingrid Sheets PA-C Estimated Blood Loss 22 Findings Consistent with Post-Op Diagnosis Specimens Gallbladder to pathology Drains None Anesthesia Type General Complications none Disposition Accompanied Patient To Recovery: No Disposition: Recovery Room Indications This is a 39-year-old male who came to the ED yesterday with complaints of abdominal pain. A workup showed an acute cholecystitis. He was placed on IV fluids and IV antibiotics. He will be taken the OR for laparoscopic cholecystectomy. He understands all the risks in detail. Description of Procedure The patient was taken the OR, placed in the supine position and underwent excellent general endotracheal anesthesia. Their abdomen is prepped and draped normal sterile fashion. A transverse supraumbilical incision was made and dissection was taken down to identify the anterior fascia. Two Vicryl sutures were placed on either side of the midline and his midline was then incised. The peritoneal cavity was entered bluntly with Maya clamp. A 12mm De Jesus trocar was then inserted and secured. Good pneumoperitoneum was achieved to 15 mmHg pressure. The patient was placed in head up and rolled to the left position. A 11mm subxiphoid and two 5mm lateral ports were placed in the normal fashion. The gallbladder was identified and was acutely inflamed. An aspirator was then used to aspirate the gallbladder. This then facilitated grasping the fundus of the gallbladder which was retracted superiorly. The neck of the gallbladder was grasped and then retracted laterally. This splayed open the Hepatocystic triangle. Attention was then turned to taking down the peritoneal attachments and identify the cystic duct and cystic artery. Once these were skeletonized and a medial and lateral window was created between the gallbladder fossa and the duct, thereby ensuring the critical view. Then three clips were then placed distally on cystic duct one proximally on the cystic duct, it was then transected. Two clips were then placed approximately on the cystic artery one distally, the cystic artery was transected. A posterior branch of the artery was also clipped and cut. An electrocautery hook was then used to move the gallbladder off the gallbladder fossa. There was some bile spillage. The gallbladder was then placed into an Endobag and brought out through the supraumbilical incision. The pneumoperitoneum was re-established and abdomen was irrigated out until the suction fluid was clear. There were some areas on the gallbladder fossa which were raw and were cauterized. The ports were then removed and the abdomen decompressed. The fascia of the supraumbilical incision was closed with Vicryl sutures. 0.5% Marcaine with epinephrine local was to create a local field block. A Vicryl suture was used to close the skin. Dermabond was used to reinforce the incisions. Sterile dressings were applied. Patient tolerated the procedure without complication and sent to the postop recovery period of observation. They will then be sent to the floor for the rest of their care. Ingrid Sheets PA-C was present and participated in the entire procedure. She was integral in skin closure, retraction, and camera manipulation. There was no qualified resident available to assist. I attest to the content of the Intraoperative Record and any orders documented therein. Any exceptions are noted below.
--- NOTE | 2025-01-26 10:31 | Anesthesiology Progress Note ---
Date of Service January 26, 2025 Anesthesia Post Procedure Vital Signs Vital Signs: Temp Pulse Pulse Pulse Resp BP BP 01/26/25 10:25 36.9 C 72 18 140/85 01/26/25 10:15 79 21 132/78 01/26/25 10:05 92 H 17 149/86 H 01/26/25 09:59 36.8 C 109 H 14 145/98 H 01/26/25 08:00 36.8 C 95 H 18 140/89 01/26/25 07:00 37.0 C 108 H 16 128/81 01/25/25 23:05 37.0 C 91 H 16 130/70 01/25/25 22:30 01/25/25 19:50 36.9 C 84 16 155/88 H 01/25/25 18:28 70 14 143/88 H 01/25/25 15:00 85 19 128/91 01/25/25 14:36 58 L 16 125/84 01/25/25 13:03 40 L 14 144/96 H 01/25/25 12:54 54 L 01/25/25 12:21 57 L 13 141/105 H 01/25/25 11:03 51 L 16 152/100 H Pulse Ox O2 Del Method 01/26/25 10:25 97 Room Air 01/26/25 10:15 97 Room Air 01/26/25 10:05 97 Room Air 01/26/25 09:59 96 Room Air 01/26/25 08:00 98 Room Air 01/26/25 07:00 97 Room Air 01/25/25 23:05 95 Room Air 01/25/25 22:30 Room Air 01/25/25 19:50 97 Room Air 01/25/25 18:28 98 Room Air 01/25/25 15:00 99 Room Air 01/25/25 14:36 01/25/25 13:03 99 Room Air 01/25/25 12:54 01/25/25 12:21 100 Room Air 01/25/25 11:03 100 Room Air Pain Intensity Abdomen: Pain Intensity: 2 Transfer of Care Handoff Completed per policy Notes Mental Status: alert / awake / arousable Patient Amnestic to Procedure: Yes Nausea / Vomiting: adequately controlled Pain: adequately controlled Airway Patency, RR, SpO2: stable & adequate BP & HR: stable & adequate Hydration State: stable & adequate Anesthetic Complications: no major complications apparent
[2025-01-26] MEDS ORDERED: ACETAMINOPHEN 325 MG TAB PO PRN (10:48)
[2025-01-26 11:27] VITALS: RESP 16
[2025-01-26 15:16] VITALS: BP 131/84; PULSE 95; TEMP 97.9; O2SAT 97
--- NOTE | 2025-01-26 15:48 | Discharge Summary ---
Date of Service January 26, 2025 Admission HPI Per Admitting Provider Mr Nacho Badillo is a 39 yo male with PMh of b/i inguinal hernia s/p repair (age 2) ADHD, constipation. his was adopted and his biological mother from lung cnacer his adopted mother is a retired nurse he's been having constipation for several months, see GI, but colonoscopy wasn't until Apr on Friday he noticed an episode of LLQ pain, RUQ pain and epigastric pain on Friday evening, he's again noticing LLQ pain, RUQ, pain and epigastric pain he's denied any blood in the stool, melena, thin caliper stool, weight loss, nausea and vomiting his CT abdomen concern for cholecystitis. however, he was in significant pain and BP is 152/100 in addition, his mother, mentioned b/l shoulder pain no chest, no shortness of breath no headache Admission Exam Per Admitting Provider Constitutional: WD/WN, vitals as above cooperative; no acute distress, not ill appearing, + uncomfortable, not in distress, not combative, not diaphoretic and not lethargic Looks slightly uncomfortable secondary to pain, trying to get in comfortable position but not diaphoretic and in no acute distress Respiratory: normal respiratory effort, lungs clear to auscultation Cardiovascular: RRR, no murmur, no edema Gastrointestinal (Abdomen): Inspection/Auscultation: abdomen normal to inspection; abdomen not distended Percussion/Palpation: + abdomen tender (RUQ + Rice's sign) and abdomen soft; no guarding, abdomen not rigid and abdomen not firm Skin: no rashes, warm and dry no jaundice Psychiatric: Orientation: alert and oriented x 3 Principal Diagnosis Acute calculous cholecystitis Discharge Exam Constitutional WD/WN, vitals as above Eyes no scleral abnormality Respiratory normal respiratory effort Cardiovascular Rate/Rhythm: regular rate and regular rhythm Gastrointestinal (Abdomen) Inspection/Auscultation: abdomen normal to inspection Skin no rashes, warm and dry Discharge Data Allergies Allergy/AdvReac Type Severity Reaction Status Date / Time No Known Drug Allergies Allergy Verified 01/26/25 07:56 Consultations 01/25/25 11:06 ED Decision to Admit Stat Procedures Performed Operation Date: 01/26/25 08:50 Actual Procedures p Laparoscopic Cholecystectomy(Not Applicable) - Lexa Mishra MD Ordered Studies 01/25/25 08:44 CT abd pelvis IV con only Stat Hospital Course (1) Acute calculous cholecystitis: Is a 39-year-old male who is admitted to the ED with complaints of abdominal pain. Workup showed acute cholecystitis. He was placed on IV fluids IV antibiotics. He was taken to the OR for laparoscopic cholecystectomy. He tolerated the procedure well. He was maintained on antibiotics postop. He was ambulating and tolerating a regular diet and therefore was discharged home. Total Time Total Time Spent Total Time Spent (In Minutes): 15 Total Time Includes: Discharge Planning and Medication Reconciliation Discharge Plan Discharge Items Patient Disposition: Home - Self-Care Reason For Visit: ACUTE CALCULOUS CHOLECYSTITIS Discharge Diagnosis: Acute cholecystitis Condition on Discharge: Fair Activity: Per Instructions section Lifting: No more than 25 pounds Bathing: No limitations Bathing Comment: shower tomorrow Sexual Activity: When tolerated Exercise/Sports: Wait until after follow-up appointment Driving/Machine Use: Resume 3 days after discharge Weightbearing: Full weightbearing Non-emergency contact: Surgeon Call non-emergency contact if: your pain is concerning for you, your temperature is above 101.5 and your wound pain has increased Follow-up/Referrals: Shivani Yates MD [Primary Care Provider] - 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 temperature higher than 101.5 degrees F, excessive bleeding or pain Diet: - Resume previous diet, regular as tolerated. Medications: - Resume previous medications unless instructed otherwise by your surgeon. - May alternate extra strength Tylenol and Ibuprofen as needed for mild to moderate pain - Tylenol 650 mg every 6 hours as needed - Ibuprofen 600 mg every 6 hours as needed, take with food - Percocet 1 every 6 hours, as needed for moderate to severe pain. Narcotics may cause nausea on an empty stomach, please eat before taking pain pills - Recommend daily stool softener (Colace) while taking narcotic pain medication to prevent constipation or straining. Drink plenty of water daily. Follow-up: - If not already scheduled, please call the office to schedule a two week follow-up appointment. Office number Pending Studies at Discharge: No Stand-Alone Forms: My [facility], Smoking Cessation Medications and DC Order Prescriptions: New oxycodone-acetaminophen [Percocet] 5-325 mg tablet 1 tab PO Q6H PRN (Reason: pain) Qty: 14 0RF Continued polyethylene glycol 3350 [Miralax] 17 gram/dose powder 17 g PO DAILY PRN (Reason: Constipation) famotidine 40 mg tablet 40 mg PO QPM docusate sodium [Colace] 100 mg Capsule 100 mg PO DAILY PRN (Reason: Constipation) bisacodyl [Dulcolax (bisacodyl)] 5 mg Tablet,Delayed Release (Dr/Ec) 5 mg PO DAILY PRN (Reason: Constipation) dextroamphetamine-amphetamine [Adderall XR] 30 mg capsule,extended release 24hr 30 mg PO QAM Linzess 145 mcg capsule 145 mcg PO QAM Discharge Orders: Discharge Order (Routine); Ordered 01/26/25 Ordered By: Lexa Mishra Admission Data Admit Date/Time: 01/25/25 12:05 Attending Provider: Lexa Mishra Admit Provider: Lexa Mishra Primary Care Provider: Shivani Yates Other Providers: Lexa Mishra
--- NOTE | 2025-01-26 17:44 | Hospitalist Progress Note ---
Date of Service January 26, 2025 Assessment & Plan (1) Abdominal pain: Plan: Nacho Qureshi is a 39 yo male with PMH b/l inguinal hernia s/p surgery age 2, ADHD, constipation. he is adopted, but mentioned Fhx of copd and CHF he been having constipation but unable to get colonoscopy till apr 2025 on friday, he has episode of LLQ pain, RUQ pain. on Friday evening (01/24), he's again has LLQ pain, RUQ pain, epigatstric pain 1. acute cholecystitis 2. LLQ pain, epigastric pain 3. constipation 4. ADHD 5. hx of b/l inguinal hernia s/p repair 1. acute cholecystitis s/p lap cholecystectomy surgery cleared for dc today augmentin, pain control 2. LLQ pain, constipation he will benefit from early colonoscopy discussed potential for colonic polyps, cancer. family will help located an outpatient GI provider 3. constipation he's on miralax, linezess, colace 4. ADHD he's on adderall XR 30mg PO daily 5. GERd, famoitidine 40mg BID, (2) Acute calculous cholecystitis: (3) LLQ pain: Admission and Anticipated Discharge Date Admission Date: January 25, 2025 Subjective no abdominal pain, no fever; no chill discussed about obtaining colonoscopy in 3-4 weeks family, mother, who is a retired nurse verbalized understand discussed risk of colon cancer augmentin prescribed for 7-10 days discussed about clear diet for next 24 hours Review of Systems Review of Systems: Constitutional: No Weight Change, No Fever, No Chills, No Night Sweats, No Fatigue, No Malaise ENT/Mouth: No Hearing Changes, No Ear Pain, No Nasal Congestion, No Sinus Pain, No Hoarseness, No sore throat, No Rhinorrhea, No Swallowing Difficulty Eyes: No Eye Pain, No Swelling, No Redness, No Foreign Body, No Discharge, No Vision Changes Cardiovascular: No Chest Pain, No SOB, No PND, No Dyspnea on Exertion, No Orthopnea, No Claudication, No Edema, No Palpitations Respiratory: No Cough, No Sputum, No Wheezing, No Smoke Exposure, No Dyspnea Gastrointestinal: No Nausea, No Vomiting, No Diarrhea, No Constipation, No Pain, No Heartburn, No Anorexia, No Dysphagia, No Hematochezia, No Melena, No Flatulence, No Jaundice Genitourinary: No Dysmenorrhea, No DUB, No Dyspareunia, No Dysuria, No Urinary Frequency, No Hematuria, No Urinary Incontinence, No Urgency, No Flank Pain, No Urinary Flow Changes, No Hesitancy Musculoskeletal: No Arthralgias, No Myalgias, No Joint Swelling, No Joint Stiffness, No Back Pain, No Neck Pain, No Injury History Skin: No Skin Lesions, No Pruritis, No Hair Changes, No Breast/Skin Changes, No Nipple Discharge Physical Exam Physical Exam: VITALS: Reviewed. WEIGHT/BMI reviewed. GEN: Healthy appearing, well-developed, NAD. -Head: NC/AT; -Eyes: PERRL, EOMI. No discharge or redn ess; -Mouth and throat: MMM. Normal gums, muc eric, palate,. NECK: Supple, with no masses. CV: RRR, no m/r/g. LUNGS: CTAB, no w/r/c. ABD: Soft, NT/ND, NBS, no masses or organomegaly. no ascites; no mass noted. : N/A MSK: No deformities, Normal gait. EXT: No clubbing, cyanosis, or edema. NEURO: AAox3 Results & Data Results & Data Vital Signs (Past 12 Hours) Vital Signs Temp Pulse Pulse Resp BP Pulse Ox O2 Del Method 01/26/25 15:15 36.6 C 95 H 16 131/84 97 Room Air 01/26/25 14:21 37.1 C 83 16 145/84 H 98 Room Air 01/26/25 12:52 37.0 C 91 H 16 166/78 H 95 Room Air 01/26/25 12:00 37.1 C 87 16 151/82 H 98 Room Air 01/26/25 11:27 37.1 C 77 16 142/89 H 98 Room Air 01/26/25 11:00 37.2 C 86 18 136/85 96 Room Air 01/26/25 10:35 92 H 17 133/81 97 Room Air 01/26/25 10:25 36.9 C 72 18 140/85 97 Room Air 01/26/25 10:15 79 21 132/78 97 Room Air 01/26/25 10:05 92 H 17 149/86 H 97 Room Air 01/26/25 09:59 36.8 C 109 H 14 145/98 H 96 Room Air 01/26/25 08:00 36.8 C 95 H 18 140/89 98 Room Air 01/26/25 07:00 37.0 C 108 H 16 128/81 97 Room Air PG Care Time/CCT Total # of Minutes Spent Total Time Spent with Patient: Total time spent is greater than 50% in coordination of care (as documented) at patient's floor/unit and/or counseling patient: Coding Level of Care Code 45451 SUB INP/OBS CARE 06/12MIN Diagnoses Abdominal pain R10.9 Acute calculous cholecystitis K80.00 LLQ pain R10.32 Time Spent (min) 15
== END 2025-01-26 16:40 | disposition home or self-care (01) ==
LOC: ED 08:25 → EDINP 08:25 → 3W 15:23